=== PATIENT | male | born 1995 | race Caucasian/White ===

== ENCOUNTER 2022-12-31 23:41 | Inpatient (IN) | payer BC ==
[2023-01-01] MEDS ORDERED: Ketorolac Tromethamine 30 MG/ML VIAL ONE (01:00)
[2023-01-01] MEDS ORDERED: Morphine 4 MG/ML VIAL ONE (01:00)
[2023-01-01] MEDS ORDERED: Ondansetron PF 4 MG/2 ML Vial IVP PRN (02:30)
[2023-01-01] MEDS ORDERED: Ondansetron ODT 4 MG TAB SL PRN (02:30)
[2023-01-01] MEDS ORDERED: Acetaminophen 325 MG TAB PO PRN (02:30)
[2023-01-01 03:58] VITALS: BMI 22.0
[2023-01-01] MEDS: Sodium Chloride 0.9% 1,000 ML IV SCH ×3 (04:51→11:25)
[2023-01-01] MEDS ORDERED: cefTRIAXone\\ROCEPHIN 1 GM in Sodium Chloride 0.9% 100 ML IVPB SCH (10:00)
[2023-01-01] MEDS: HYDROcodone/Acetaminophen 5/325 mg Tablet PO PRN ×3 (12:19→21:24)
[2023-01-01 18:58] LABS: Bacteria/HPF None Seen HPF (None Seen); Bilirubin Negative (Negative); Blood, Urine Negative (Negative); CAUTI Indications for Culture Fever or rigors; Clarity Turbid (Clear); Glucose, Urine (Dipstick) Normal (Negative); Ketone, Urine Negative (Negative); Leukocyte 75 Leu/uL (Negative); Nitrite Negative (Negative); Protein, Urine (Dipstick) 20 mg/dL (Neg-Trace); RBC/HPF 0-3 HPF (0-3); Specific Gravity, Urine 1.028 (1.002-1.036); Squamous Epithelial 0-3 HPF (0-3); Urobilinogen Normal mg/dL (Less than 2); pH, Urine 5.5 (5.0-9.0)
[2023-01-01 19:15] LABS: Urine Culture Reflex No No
[2023-01-01] MEDS ORDERED: LevoFLOXacin 500 mg/D5W 500 MG in Premix Bag 1 BAG IVPB SCH (22:00)
[2023-01-01] MEDS: Acetaminophen 325 MG TAB PO PRN (22:03)
[2023-01-02] MEDS: HYDROcodone/Acetaminophen 5/325 mg Tablet PO PRN ×4 (02:05→21:11)
[2023-01-02] MEDS: Sodium Chloride 0.9% 1,000 ML IV SCH ×2 (02:08→12:29)
[2023-01-02 03:40] LABS: Chlam.trachomatis by PCR,Urine Not Detected (NotDetected); GC N.gonorrhoeae PCR,UrineVOID Not Detected (NotDetected)
[2023-01-02] MEDS ORDERED: Morphine 4 MG/ML VIAL SLOW IVP SCH (06:00)
[2023-01-02 08:17] LABS: #Basophils 0.1 thou/uL (0.0-0.2); #Eosinphils 0.1 thou/uL (0.0-0.7); #Monocytes 1.9 thou/uL (0.11-0.59); #Neutrophils 30.4 thou/uL (1.40-6.50); %Basophils 0.4 % (0.0-1.0); %Eosinophils 0.1 % (0.0-10.0); %Lymphocytes 6.7 % (21.0-51.0); %Monocytes 5.3 % (0.0-10.0); %Neutrophils 84.9 % (42.0-75.0); Hemoglobin 12.9 g/dL (14.0-18.0); Mean Corpuscular HGB CONC 33.9 g/dL (32.0-36.0); Mean Corpuscular Hemoglobin 31.6 pg (27.0-31.0); Mean Corpuscular Volume 93.1 fl (78.0-98.0); Platelet Count 334 10x3/uL (130-400); RBC Distribution Width 11.9 % (11.5-14.5); Red Blood Cell (RBC) Count 4.08 mill/uL (4.70-6.10)
[2023-01-02 08:20] LABS: White Blood Cell (WBC) Count 35.8 10x3/uL (4.8-10.8)
[2023-01-02 08:47] LABS: Anion Gap 11 mmol/L (10-20); BUN (Urea Nitrogen) 9 mg/dL (8.9-20.6); Calc. Creatinine Clearance 120 mL/min (70-130); Calcium 8.9 mg/dL (7.8-10.44); Carbon Dioxide 24 mmol/L (22-29); Chloride 101 mmol/L (98-107); Estimated GFR 111; Glucose 108 mg/dL (70-105); Potassium 3.6 mmol/L (3.5-5.1); Sodium 132 mmol/L (136-145)
[2023-01-02] MEDS ORDERED: Morphine 2 MG/ML VIAL SLOW IVP PRN (09:14)
[2023-01-02] MEDS ORDERED: Piperacillin/Tazobactam 4.5 GM in Sodium Chloride 0.9% 100 ML IVPB SCH ×2 (09:18→10:00)
[2023-01-02] MEDS ORDERED: Doxycycline 100 MG in Syringe 0 ML IVPB SCH (09:26)
[2023-01-02] MEDS ORDERED: Piperacillin/Tazobactam 3.375 GM in Sodium Chloride 0.9% 100 ML IVPB SCH (10:00)
[2023-01-02] MEDS ORDERED: VANC/ZOSYN IVPB PRN (11:28)
[2023-01-02] MEDS ORDERED: Doxycycline 100 MG in Sodium Chloride 0.9% 100 ML IVPB SCH (12:00)
[2023-01-02] MEDS: VANCOMYCIN 1.25 GM/250 ML BAG 1.25 GM in Premix Bag 1 BAG IVPB SCH (12:28)
[2023-01-02] MEDS ORDERED: Iopamidol-370 76% 500 ML MDV (1 ML CHARGE) ONE (13:58)
[2023-01-02] MEDS: Piperacillin/Tazobactam 3.375 GM in Sodium Chloride 0.9% 100 ML IVPB SCH ×2 (14:57→21:05)
[2023-01-02] MEDS: Acetaminophen 325 MG TAB PO PRN (16:36)
[2023-01-02] MEDS ORDERED: Ketorolac Tromethamine 30 MG/ML VIAL IVP SCH (18:00)
[2023-01-02] MEDS: Ketorolac Tromethamine 30 MG/ML VIAL IVP PRN (20:17)
[2023-01-03] MEDS: VANCOMYCIN 1.25 GM/250 ML BAG 1.25 GM in Premix Bag 1 BAG IVPB SCH ×2 (00:49→11:53)
[2023-01-03] MEDS: Sodium Chloride 0.9% 1,000 ML IV SCH ×2 (00:53→05:27)
[2023-01-03 02:07] VITALS: TEMP 98.3
[2023-01-03] MEDS: Piperacillin/Tazobactam 3.375 GM in Sodium Chloride 0.9% 100 ML IVPB SCH (05:18)
[2023-01-03] MEDS: Ketorolac Tromethamine 30 MG/ML VIAL IVP PRN ×2 (05:22→13:54)
[2023-01-03 08:25] VITALS: BP 111/69
[2023-01-03 09:50] LABS: #Basophils 0.1 thou/uL (0.0-0.2); #Eosinphils 0.1 thou/uL (0.0-0.7); #Monocytes 1.3 thou/uL (0.11-0.59); #Neutrophils 17.6 thou/uL (1.40-6.50); %Basophils 0.3 % (0.0-1.0); %Eosinophils 0.6 % (0.0-10.0); %Lymphocytes 7.6 % (21.0-51.0); %Monocytes 6.4 % (0.0-10.0); %Neutrophils 84.2 % (42.0-75.0); Hematocrit 37.8 % (42.0-52.0); Hemoglobin 12.5 g/dL (14.0-18.0); Mean Corpuscular HGB CONC 33.1 g/dL (32.0-36.0); Mean Corpuscular Hemoglobin 30.6 pg (27.0-31.0); Mean Corpuscular Volume 92.4 fl (78.0-98.0); Mean Platelet Volume 9.2 fL (7.4-10.4); Platelet Count 342 10x3/uL (130-400); RBC Distribution Width 11.7 % (11.5-14.5); Red Blood Cell (RBC) Count 4.09 mill/uL (4.70-6.10); White Blood Cell (WBC) Count 20.9 10x3/uL (4.8-10.8)
[2023-01-03 10:22] LABS: Anion Gap 10 mmol/L (10-20); BUN (Urea Nitrogen) 6 mg/dL (8.9-20.6); Calc. Creatinine Clearance 118 mL/min (70-130); Calcium 8.8 mg/dL (7.8-10.44); Carbon Dioxide 25 mmol/L (22-29); Chloride 104 mmol/L (98-107); Estimated GFR 110; Glucose 115 mg/dL (70-105); Potassium 3.2 mmol/L (3.5-5.1); Sodium 136 mmol/L (136-145)
== END 2023-01-03 14:07 | disposition home or self-care (01) | DRG 872 ==
LOC: ERS 23:41 → T4-A 01-01 02:22 → OBSVTOIN 01-02 09:16
PROVIDERS: ADMIT Internal Medicine; ATTEND Internal Medicine
DX: A41.51 Sepsis due to Escherichia coli [E. coli] (principal); N30.00 Acute cystitis without hematuria; N45.1 Epididymitis; N50.811 Right testicular pain; W22.8XXA Striking against or struck by other objects, initial encounter; F17.210 Nicotine dependence, cigarettes, uncomplicated; N45.3 Epididymo-orchitis; N43.3 Hydrocele, unspecified; I86.1 Scrotal varices
CPT/HCPCS: 36415; 72193; 76870; 80048; 81001; 83605; 85025; 87491; 87591; 87661; 93976; 96361; 96374; 96375; 96376; G0378; J0696; J1885; J1956; J2270; J2272; J2543; J3370; J3490; J7050; Q9967